=== PATIENT | male | born 2000 | race Caucasian/White ===

== ENCOUNTER 2022-05-25 12:53 | Emergency (ER) | payer MEDICAID ==
[~2022-05-25] VITALS: Ht 177.8 cm; Wt 99.8 kg
[2022-05-25] MEDS ORDERED: IV NORMAL SALINE 1000 ML BAG IV ONE (13:15)
--- NOTE | 2022-05-25 13:22 | NUR ---
FLU AND COVID SWABS SENT TO LAB
[2022-05-25 13:43] LABS: HEMATOCRIT 41.7 % (36.7-47.1); MEAN CORPUSCULAR HEMOGLOBIN 32.1 uug (23.8-33.4); PLATELET COUNT (AUTO) 237 K/uL (152-348)
[2022-05-25 13:56] LABS: BILIRUBIN,DIRECT 0.2 mg/dL (0.0-0.2); BILIRUBIN,TOTAL 0.4 mg/dL (0.2-1.0); CREATININE 1.1 mg/dL (0.6-1.3); TOTAL PROTEIN, SERUM 8.3 g/dL (6.4-8.2)
[2022-05-25] MEDS ORDERED: LIDOCAINE VISCUS 2% 15 ML UDC ONE (13:58)
[2022-05-25] MEDS ORDERED: FAMOTIDINE 20 MG TABLET ONE (13:58)
[2022-05-25] MEDS ORDERED: MAG HYDROX/AL HYDROX/SIMETH 30 ML LIQUID UDC ONE (13:58)
[2022-05-25] MEDS ORDERED: MAG HYDROX/AL HYDROX/SIMETH 30 ML LIQUID UDC PO ONE (14:00)
[2022-05-25] MEDS ORDERED: FAMOTIDINE 20 MG TABLET PO ONE (14:00)
[2022-05-25] MEDS ORDERED: LIDOCAINE VISCUS 2% 15 ML UDC MM ONE (14:00)
[2022-05-25] MEDS ORDERED: ONDA4TAB11 PO (14:29)
[2022-05-25] MEDS ORDERED: FAMO-132 PO (14:29)
--- NOTE | 2022-05-25 14:36 | NUR ---
patient states he felt "a little better" after taking the PO meds. DC, Rx and Follow up instructions given and explained to patient who states he understands all instructions
== END 2022-05-25 14:40 | disposition home or self-care (01) ==
LOC: ER 12:53
DX: R13.10 Dysphagia, unspecified (principal); R42 Dizziness and giddiness; R11.0 Nausea; J45.909 Unspecified asthma, uncomplicated; Z20.822 Contact with and (suspected) exposure to COVID-19
CPT/HCPCS: 36415; 71045; 83690; 83735; 85025; 87400; 93005; A4663